=== PATIENT | male | born 1980 | race Caucasian/White ===

== ENCOUNTER 2017-03-12 03:54 | Emergency (ER) | payer SELFPAY ==
[2017-03-12] MEDS ORDERED: guaiFENesin/DEXTROMETHORPHAN 10 ML UDC PO STA (04:02)
[2017-03-12] MEDS ORDERED: PSEUDOEPHEDRINE 30 MG TABLET PO STA (04:02)
[2017-03-12] MEDS ORDERED: DEXAMETHASONE 10 MG/ML VIAL PO STA (04:02)
[2017-03-12] MEDS ORDERED: KETOROLAC 60 MG/2 ML VIAL IM STA (04:03)
[2017-03-12] MEDS ORDERED: BENZONATATE 100 MG CAPSULE PO STA (04:03)
[2017-03-12] MEDS ORDERED: BENZONATATE 100 MG CAPSULE PO ONE (04:05)
[2017-03-12] MEDS ORDERED: DEXAMETHASONE 10 MG/ML VIAL ONE (04:06)
[2017-03-12] MEDS ORDERED: PSEUDOEPHEDRINE 30 MG TABLET PO ONE (04:06)
[2017-03-12] MEDS ORDERED: KETOROLAC 60 MG/2 ML VIAL ONE (04:06)
[2017-03-12] MEDS ORDERED: guaiFENesin/DEXTROMETHORPHAN 10 ML UDC ONE (04:06)
[2017-03-12 04:27] LABS: RAPID STREP SCREEN REAGENT QC YELLOW (YELLOW)
[2017-03-12 04:28] VITALS: BP 141/94
--- NOTE | 2017-03-12 04:35 | ED Physician Documentation ---
PD HPI URI - Stated complaint Stated Complaint: SORE THROAT,CONGESTION - Chief complaint Chief Complaint: Heent - History obtained from History obtained from: Patient - History of Present Illness Timing - onset: How many days ago (3) Timing details: Gradual onset, Still present Associated symptoms: Nasal congestion, Rhinorrhea, Sinus pain, Dry cough. No: Productive cough Contributing factors: No: Sick contact Similar symptoms before: Has not had sx before Recently seen: Not recently seen - Additional information Additional information: Patient is a 37 year old male with no significant past medical history who is presenting to the emergency department for nasal congestion, cough and sore throat. patient states that he has been congested and unable to sleep and now has developed a sore throat with his other symptoms. Review of Systems Constitutional: denies: Fever, Chills Eyes: denies: Loss of vision Ears: denies: Loss of hearing, Ear pain Nose: reports: Rhinorrhea / runny nose, Congestion, Sinus pressure / pain Throat: reports: Sore throat Respiratory: reports: Cough GI: denies: Nausea, Vomiting : denies: Dysuria, Frequency Skin: denies: Rash, Lesions Musculoskeletal: denies: Neck pain, Back pain Immunocompromised: denies: Immunocompromised PD PAST MEDICAL HISTORY - Past Medical History Past Medical History: No - Past Surgical History Past Surgical History: No - Present Medications Home Medications: Ambulatory Orders Medication Instructions Recorded Confirmed Pseudoeph/Dm/Guaifen/Acetamin 1 each PO Q6HR #20 tablet 03/12/17 [Duraflu 722-10-061-60 mg Tab] - Allergies Allergies/Adverse Reactions: Allergies Allergy/AdvReac Type Severity Reaction Status Date / Time No Known Drug Allergies Allergy Verified 03/12/17 04:02 - Social History Does the pt smoke?: No Smoking Status: Never smoker Does the pt drink ETOH?: No Does the pt have substance abuse?: No - Immunizations Immunizations are current?: Yes PD ED PE NORMAL - Vitals Vital signs reviewed: Yes - General General: Alert and oriented X 3, No acute distress - HEENT HEENT: Atraumatic, PERRL - Neck Neck: Supple, no meningeal sign, No JVD - Cardiac Cardiac: RRR, No murmur - Respiratory Respiratory: No respiratory distress, Clear bilaterally - Abdomen Abdomen: Soft, Non tender, Non distended - Derm Derm: Normal color, Warm and dry, No rash - Extremities Extremities: No deformity, No tenderness to palpate - Neuro Neuro: Alert and oriented X 3, No motor deficit, No sensory deficit, Normal speech PD ED PE EXPANDED - HEENT HEENT: Nasal congestion, Rhinorrhea, Moist mucous membranes, Pharyngeal erythema , Swollen tonsils Results - Vitals Vitals: Vital Signs - 24 hr 03/12/17 04:00 Temperature 36.5 C Heart Rate 80 Respiratory 16 Rate Blood Pressure 141/94 H O2 Saturation 97 Oxygen O2 Source Room air - Labs Labs: Laboratory Tests 03/12/17 04:16 Group A Strep Rapid Negative PD MEDICAL DECISION MAKING - ED course Complexity details: reviewed old records, reviewed results, re-evaluated patient , considered differential, d/w patient, d/w family ED course: Patient was seen and examined at bedside. Patient was in no acute distress and vital signs were within normal limits. rapid strep was performed and was within normal limits. patient was treated with decadron, toradol. pseudophed, robitussun. Patien required no further work up and was stable for discharge with outpatient follow up. Departure - Departure Disposition: 01 Home, Self Care Clinical Impression: Upper respiratory infection Condition: Good Instructions: ED URI Viral Follow-Up: primary,care provider [Other] - As Needed Prescriptions: Pseudoeph/Dm/Guaifen/Acetamin [Duraflu 704-48-325-60 mg Tab] 1 each PO Q6HR #20 tablet Comments: Your symptoms today are being caused by an upper respiratory infection. They are normally viral in nature meaning they are self limited. You can take over the counter cough and cold medicine, but make sure it has some type of decongestant like psuedophed. You should follow up with your pmd if your symptoms persist for over a week. You may return to the emergency department at any time for new, worsening or uncontrollable sympotms.
== END 2017-03-12 04:55 | disposition home or self-care (01) ==
LOC: ED 03:54
DX: J06.9 Acute upper respiratory infection, unspecified (principal)
CPT/HCPCS: 87070; 87430; 96372; 99283; A9270

== ENCOUNTER 2017-10-07 18:23 | Emergency (ER) | payer OTHER ==
[2017-10-07 19:55] LABS: BASOPHILS # (AUTO) 0.1 10^3/uL (0.0-0.1); BASOPHILS % (AUTO) 0.6 %; EOSINOPHILS # (AUTO) 0.2 10^3/uL (0.0-0.7); EOSINOPHILS % (AUTO) 1.9 %; LYMPHOCYTES # (AUTO) 2.9 10^3/uL (1.5-3.5); LYMPHOCYTES % (AUTO) 23.2 %; MEAN CORPUSCULAR HGB CONC 33.3 g/dL (32.0-36.0); MEAN CORPUSCULAR VOLUME 90.1 fL (80.0-94.0); MEAN PLATELET VOLUME 9.1 fL (7.4-11.4); MONOCYTES # (AUTO) 0.9 10^3/uL (0.0-1.0); MONOCYTES % (AUTO) 7.3 %; NEUTROPHILS # (AUTO) 8.5 10^3/uL (1.5-6.6); PLT - PLATELET COUNT 243 10^3/uL (130-450); RED BLOOD COUNT 5.01 10^6/uL (4.70-6.10); RED CELL DISTRIBUTION WIDTH 13.2 % (12.0-15.0); WHITE BLOOD COUNT 12.7 x10^3/uL (4.8-10.8)
[2017-10-07 20:09] LABS: ALBUMIN 4.7 g/dL (3.2-5.5); ALBUMIN/GLOBULIN RATIO 1.4 (1.0-2.2); BILIRUBIN,TOTAL 0.7 mg/dL (0.2-1.0); CALCIUM 9.2 mg/dL (8.5-10.3); CREATININE 0.9 mg/dL (0.6-1.2)
[2017-10-07 20:33] LABS: BILIRUBIN,URINE NEGATIVE (NEGATIVE); GLUCOSE, URINE (UA) NEGATIVE (NEGATIVE); KETONES,URINE (UA) TRACE mg/dL (NEGATIVE); LEUKOCYTE ESTERASE, URINE NEGATIVE (NEGATIVE); NITRITE,URINE NEGATIVE (NEGATIVE); OCCULT BLOOD,URINE NEGATIVE (NEGATIVE); PROTEIN,URINE NEGATIVE (NEGATIVE); UROBILINOGEN,URINE 0.2 (NORMAL) E.U./dL (NORMAL)
[2017-10-07 20:35] VITALS: BP 155/103
[2017-10-07 20:35] LABS: CLARITY,URINE CLEAR (CLEAR)
[2017-10-07] MEDS ORDERED: KETOROLAC 60 MG/2 ML VIAL IM STA (20:55)
--- NOTE | 2017-10-07 20:55 | ED Physician Documentation ---
PD HPI ABD PAIN - Stated complaint Stated Complaint: SIDE PX - Chief complaint Chief Complaint: Abd Pain - History obtained from History obtained from: Patient - History of Present Illness Timing - onset: Yesterday Timing - details: Gradual onset, Still present Quality: Aching Location: RUQ, LUQ Improved by: Laying still Worsened by: Moving, Breathing, Position, Palpation Associated symptoms: No: Fever, Nausea, Vomiting, Diarrhea, Constipation Similar symptoms before: Has not had sx before Recently seen: Not recently seen - Additional information Additional information: Patient is a 37 year old male with no significant past medical history who is presenting to the emergency department for bilateral upper abdominal pain, with pain under his ribs. 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 patient states that since he has been working he has some pain in his abdominal region. Patient denies nausea, vomiting, diarhhea, constipation, fever or chills. Review of Systems Constitutional: denies: Fever, Myalgias Eyes: reports: Reviewed and negative Ears: reports: Reviewed and negative Nose: reports: Reviewed and negative Cardiac: denies: Chest pain / pressure, Palpitations, Calf pain Respiratory: denies: Dyspnea, Cough, Wheezing GI: reports: Abdominal Pain. denies: Abdominal Swelling, Nausea, Vomiting, Constipation, Diarrhea : denies: Dysuria, Frequency, Hesitancy, Unable to Void Skin: denies: Rash, Lesions Neurologic: denies: Generalized weakness, Focal weakness PD PAST MEDICAL HISTORY - Past Medical History Past Medical History: Yes Psych: Anxiety - Past Surgical History Past Surgical History: No - Present Medications Home Medications: Ambulatory Orders Medication Instructions Recorded Confirmed No Known Home Medications [No 10/07/17 10/07/17 Known Home Medications] - Allergies Allergies/Adverse Reactions: Allergies Allergy/AdvReac Type Severity Reaction Status Date / Time No Known Drug Allergies Allergy Verified 10/07/17 18:37 - Social History Does the pt smoke?: No Smoking Status: Never smoker Does the pt drink ETOH?: No Does the pt have substance abuse?: No - Immunizations Immunizations are current?: Yes PD ED PE NORMAL - Vitals Vital signs reviewed: Yes - General General: No acute distress - HEENT HEENT: Atraumatic, PERRL, Moist mucous membranes - Neck Neck: Supple, no meningeal sign, No JVD - Cardiac Cardiac: RRR, No murmur - Respiratory Respiratory: No respiratory distress, Clear bilaterally - Abdomen Abdomen: Soft, Non tender, Non distended - Derm Derm: Normal color, Warm and dry, No rash - Extremities Extremities: No deformity, Normal ROM s pain, No edema, No calf tenderness / cord - Neuro Neuro: Alert and oriented X 3, No motor deficit, No sensory deficit, Normal speech - Psych Psych: Normal mood Results - Vitals Vitals: Vital Signs - 24 hr 10/07/17 10/07/17 18:35 20:32 Temperature 37.1 C 36.7 C Heart Rate 84 74 Respiratory 18 18 Rate Blood Pressure 164/95 H 155/103 H O2 Saturation 99 99 Oxygen O2 Source Room air - Labs Labs: Laboratory Tests 10/07/17 10/07/17 10/07/17 18:56 19:48 19:48 WBC 12.7 H RBC 5.01 Hgb 15.0 Hct 45.1 MCV 90.1 MCH 30.0 MCHC 33.3 RDW 13.2 Plt Count 243 MPV 9.1 Neut # 8.5 H Lymph # 2.9 [place] # 0.9 Eos # 0.2 Baso # 0.1 Absolute Nucleated RBC 0.00 Nucleated RBC % 0.0 Sodium 135 Potassium 3.9 Chloride 97 L Carbon Dioxide 27 Anion Gap 11.0 BUN 13 Creatinine 0.9 Estimated GFR (MDRD) 95 Glucose 102 H Calcium 9.2 Total Bilirubin 0.7 AST 26 ALT 34 Alkaline Phosphatase 82 Total Protein 8.0 Albumin 4.7 Globulin 3.3 Albumin/Globulin Ratio 1.4 Lipase 32 Urine Color YELLOW Urine Clarity CLEAR Urine pH 7.0 Ur Specific [place] 1.010 Urine Protein NEGATIVE Urine Glucose (UA) NEGATIVE Urine Ketones TRACE Urine Occult Blood NEGATIVE Urine Nitrite NEGATIVE Urine Bilirubin NEGATIVE Urine Urobilinogen 0.2 (NORMAL) Ur Leukocyte Esterase NEGATIVE Ur Microscopic Review NOT INDICATED Urine Culture Comments NOT INDICATED PD MEDICAL DECISION MAKING - ED course Complexity details: reviewed old records, reviewed results, re-evaluated patient , considered differential, d/w patient ED course: Patient was seen and examined at bedside. labs were drawn and urine was collected. patient's diagnostics were within normal limits. patient's symptoms were likely msk in nature. patient was treated with toradol. patient required no further work up and was stable for discharge with outpatient follow up. Departure - Departure Disposition: 01 Home, Self Care Clinical Impression: Abdominal muscle strain Condition: Good Instructions: ED Strain Abdominal Muscle Follow-Up: primary,care provider [Other] - As Needed Comments: Your diagnostics today were within normal limits. there were no major abnormalities. Your symptoms are likely musculoskeletal in nature from work. You should alternate between ibuprofen and tylenol for pain. You should return to the emergency department for fevers, uncontrollable vomiting, new, worsening or uncontrollable symptoms. Discharge Date/Time: 10/07/17 21:06
== END 2017-10-07 21:06 | disposition home or self-care (01) ==
LOC: ED 18:23
DX: S39.011A Strain of muscle, fascia and tendon of abdomen, initial encounter (principal); X50.3XXA Overexertion from repetitive movements, initial encounter; Y92.89 Other specified places as the place of occurrence of the external cause; Y99.0 Civilian activity done for income or pay
CPT/HCPCS: 36415; 80053; 81001; 81003; 83690; 85025; 87086; 96372; 99283

== ENCOUNTER 2017-10-29 09:59 | Emergency (ER) | payer OTHER ==
[2017-10-29 10:07] VITALS: BP 116/82
[2017-10-29] MEDS ORDERED: PSEUDOEPHEDRINE 30 MG TABLET PO STA (10:17)
[2017-10-29] MEDS ORDERED: OXYMETAZOLINE NASAL SPRAY NAS STA (10:17)
--- NOTE | 2017-10-29 10:21 | ED Physician Documentation ---
History of Present Illness - Stated complaint Stated Complaint: COLD SX - Chief complaint Chief Complaint: Heent - Additonal information Additional information: hx from pt 37 m recent cough that is now improving now has severe nasal congestion and pressure behind his eyes tried choloraseptic, mucinex, vicks and other OTC meds s relief sick contacts at work no foreign travel Review of Systems Constitutional: denies: Fever Nose: reports: Congestion, Sinus pressure / pain Respiratory: reports: Cough Immunocompromised: denies: Immunocompromised PD PAST MEDICAL HISTORY - Past Medical History Past Medical History: Yes Psych: Anxiety - Past Surgical History Past Surgical History: No - Present Medications Home Medications: Ambulatory Orders Medication Instructions Recorded Confirmed Fluticasone [Flonase] 1 sprays BENNIE BID PRN #1 bottle 10/29/17 Pseudoephedrine [Sudafed] 30 mg PO Q6H PRN #12 tablet 10/29/17 - Allergies Allergies/Adverse Reactions: Allergies Allergy/AdvReac Type Severity Reaction Status Date / Time No Known Drug Allergies Allergy Verified 10/29/17 10:07 - Social History Does the pt smoke?: No Smoking Status: Never smoker Does the pt drink ETOH?: No Does the pt have substance abuse?: No - Immunizations Immunizations are current?: Yes PD ED PE NORMAL - Vitals Vital signs reviewed: Yes - General General: Alert and oriented X 3 - HEENT HEENT: EOMI, Ears normal, Moist mucous membranes, Pharynx benign (PND and erythema), Other (no focal sinus TTP redness or swelling) - Neck Neck: Supple, no meningeal sign - Cardiac Cardiac: RRR - Respiratory Respiratory: No respiratory distress, Clear bilaterally - Derm Derm: Normal color - Neuro Neuro: Alert and oriented X 3 Results - Vitals Vitals: Vital Signs - 24 hr 10/29/17 10:05 Temperature 36.8 C Heart Rate 98 Respiratory 18 Rate Blood Pressure 116/82 H O2 Saturation 98 Oxygen O2 Source Room air Departure - Departure Clinical Impression: Upper respiratory infection Qualifiers: URI type: unspecified viral URI Qualified Code(s): J06.9 - Acute upper respiratory infection, unspecified Condition: Good Instructions: ED URI Viral Prescriptions: Fluticasone [Flonase] 1 sprays BENNIE BID PRN #1 bottle PRN Reason: allergies Pseudoephedrine [Sudafed] 30 mg PO Q6H PRN #12 tablet PRN Reason: congestion Comments: May use the afrin we gave you for 3 days - 2 sprays twice a day. And the flonase 2 sprays once a day can be used until you have fully recovered Also may take sudafed to relieve the congestion and pressure - this is less likely to cause your heart to race etc than the phenylephrine decongestant may take plain mucinex as well but do not take any combination cold medications such as Dayquil while taking the medications I have prescribed. A sinus irrigation kit will help as well - these are available over the counter at most grocery stores and pharmacies Rest and drink plenty of fluids I wrote you a note to be off work for a few days so you can recover Forms: Activity restrictions
== END 2017-10-29 10:33 | disposition home or self-care (01) ==
LOC: ED 09:59
DX: J06.9 Acute upper respiratory infection, unspecified (principal)
CPT/HCPCS: 99283; A9270

== ENCOUNTER 2018-02-08 15:26 | Emergency (ER) | payer OTHER ==
[2018-02-08 15:41] VITALS: BP 140/81
[2018-02-08 18:21] LABS: BASOPHILS # (AUTO) 0.1 10^3/uL (0.0-0.1); BASOPHILS % (AUTO) 0.5 %; EOSINOPHILS # (AUTO) 0.4 10^3/uL (0.0-0.7); EOSINOPHILS % (AUTO) 3.4 %; HGB - HEMOGLOBIN 15.2 g/dL (14.0-18.0); LYMPHOCYTES # (AUTO) 3.3 10^3/uL (1.5-3.5); LYMPHOCYTES % (AUTO) 28.7 %; MEAN CORPUSCULAR HEMOGLOBIN 29.4 pg (27.0-31.0); MEAN CORPUSCULAR HGB CONC 32.8 g/dL (32.0-36.0); MEAN CORPUSCULAR VOLUME 89.7 fL (80.0-94.0); MEAN PLATELET VOLUME 9.9 fL (7.4-11.4); MONOCYTES % (AUTO) 8.9 %; NEUTROPHILS # (AUTO) 6.7 10^3/uL (1.5-6.6); NEUTROPHILS % (AUTO) 58.5 %; PLT - PLATELET COUNT 209 10^3/uL (130-450); RED BLOOD COUNT 5.17 10^6/uL (4.70-6.10); RED CELL DISTRIBUTION WIDTH 14.1 % (12.0-15.0); WHITE BLOOD COUNT 11.5 x10^3/uL (4.8-10.8)
[2018-02-08 18:26] LABS: CALCIUM 8.9 mg/dL (8.5-10.3); CREATININE 0.8 mg/dL (0.6-1.2)
--- NOTE | 2018-02-08 18:31 | ED Physician Documentation ---
History of Present Illness - Stated complaint Stated Complaint: LIGHTHEADED - Chief complaint Chief Complaint: Neuro - History obtained from History obtained from: Patient - History of Present Illness Timing: How many days ago (past several days) Pain level max: 0 Pain level now: 0 Improved by: lying down Worsened by: standing up quickly - Additonal information Additional information: Patient is a 38-year-old male who presents to the emergency department with lightheadedness after standing for the past few days. States especially occurs if he gets up too quickly. States drinks very little water. Is from [place] and states it is not hot enough here to drink water. Has no shortness of breath. No chest pain. No history of diabetes. No increased hunger or thirst. No headaches. No focal neurological deficits. No vertiginous symptoms. No syncope. Review of Systems Ten Systems: 10 systems reviewed and negative Constitutional: denies: Fever, Chills Eyes: denies: Loss of vision, Decreased vision, Photophobia Ears: denies: Ear pain Nose: denies: Rhinorrhea / runny nose, Congestion, Foreign Body Throat: denies: Sore throat Cardiac: denies: Chest pain / pressure Respiratory: denies: Cough GI: denies: Abdominal Pain, Nausea, Vomiting, Diarrhea Skin: denies: Rash Musculoskeletal: denies: Neck pain, Back pain Neurologic: denies: Focal weakness, Numbness, Difficulty speaking, Near syncope , Syncope, Confused, Altered mental status, Headache, Head injury, LOC PD PAST MEDICAL HISTORY - Past Medical History Past Medical History: Yes Psych: Anxiety - Past Surgical History Past Surgical History: No - Present Medications Home Medications: Ambulatory Orders Medication Instructions Recorded Confirmed No Known Home Medications [No 02/08/18 02/08/18 Known Home Medications] - Allergies Allergies/Adverse Reactions: Allergies Allergy/AdvReac Type Severity Reaction Status Date / Time No Known Drug Allergies Allergy Verified 10/29/17 10:07 - Social History Does the pt smoke?: No Smoking Status: Never smoker Does the pt drink ETOH?: No Does the pt have substance abuse?: No - Immunizations Immunizations are current?: Yes - POLST Patient has POLST: No PD ED PE NORMAL - Vitals Vital signs reviewed: Yes - General General: Alert and oriented X 3, No acute distress - HEENT HEENT: Atraumatic, PERRL, EOMI, Moist mucous membranes - Neck Neck: Supple, no meningeal sign, No bony TTP, No JVD, No bruit - Cardiac Cardiac: RRR - Respiratory Respiratory: No respiratory distress, Clear bilaterally - Abdomen Abdomen: Soft, Non tender, Non distended - Back Back: No spinal TTP - Derm Derm: Warm and dry, No rash - Extremities Extremities: No edema, No calf tenderness / cord, Other (normal gait.) - Neuro Neuro: Alert and oriented X 3, needle board repairer 2-12 intact, No motor deficit, No sensory deficit, Normal speech, Other (normal cerebellar tests. No nystagmus.) Eye Opening: Spontaneous Motor: Obeys Commands Verbal: Oriented GCS Score: 15 - Psych Psych: Normal mood, Normal affect Results - Vitals Vitals: Vital Signs - 24 hr 02/08/18 15:34 Temperature 36.7 C Heart Rate 60 Respiratory 16 Rate Blood Pressure 140/81 H O2 Saturation 98 Oxygen O2 Source Room air - Labs Labs: Laboratory Tests 02/08/18 02/08/18 18:05 18:05 WBC 11.5 H RBC 5.17 Hgb 15.2 Hct 46.4 MCV 89.7 MCH 29.4 MCHC 32.8 RDW 14.1 Plt Count 209 MPV 9.9 Neut # 6.7 H Lymph # 3.3 [place] # 1.0 Eos # 0.4 Baso # 0.1 Absolute Nucleated RBC 0.00 Nucleated RBC % 0.0 Sodium 137 Potassium 3.5 Chloride 103 Carbon Dioxide 25 Anion Gap 9.0 BUN 16 Creatinine 0.8 Estimated GFR (MDRD) 108 Glucose 93 Calcium 8.9 PD MEDICAL DECISION MAKING - ED course Complexity details: reviewed results, re-evaluated patient, considered differential, d/w patient ED course: Patient is a 38-year-old male who has been having lightheadedness with standing for the past few days. Appears likely related to decreased water intake. No evidence of diabetes. No electrolyte abnormalities. No evidence of stroke. No evidence of vertigo. No evidence of tumor mass. Normal neurological exam. We will have him follow-up with his doctor for further care. Feels better after drinking water here. Patient counseled regarding signs and symptoms for which I believe and urgent re-evaluation would be necessary. Patient with good understanding of and agreement to plan and is comfortable going home at this time This document was made in part using voice recognition software. While efforts are made to proofread this document, sound alike and grammatical errors may occur. Departure - Departure Disposition: 01 Home, Self Care Clinical Impression: Lightheaded, Dehydration Condition: Good Instructions: ED Dehydration Follow-Up: your,doctor in 1 week if not better [Other] Comments: Drink plenty of fluids. Return if you worsen or are not improved in the next week. Discharge Date/Time: 02/08/18 18:38
== END 2018-02-08 18:38 | disposition home or self-care (01) ==
LOC: ED 15:26
DX: R42 Dizziness and giddiness (principal); E86.0 Dehydration
CPT/HCPCS: 36415; 80048; 85025; 93005; 99281; 99283

== ENCOUNTER 2018-07-29 18:04 | Emergency (ER) | payer OTHER ==
[2018-07-29 18:30] VITALS: BP 156/94
--- NOTE | 2018-07-29 18:52 | ED Physician Documentation ---
PD HPI LOWER EXT INJURY - Stated complaint Stated Complaint: LT LEG SWOLLEN - Chief complaint Chief Complaint: Wound - History obtained from History obtained from: Patient - History of Present Illness PD HPI LOW EXT INJURY LOCATION: Left (A few days ago he noted an inflamed spot just below and posterior to the left knee. He has been on his knees a lot lately at work, he works as a ship builder. No chest pain or trouble breathing.) Review of Systems Constitutional: reports: Reviewed and negative Cardiac: reports: Reviewed and negative Respiratory: reports: Reviewed and negative PD PAST MEDICAL HISTORY - Past Medical History Past Medical History: No Psych: Anxiety - Past Surgical History Past Surgical History: No - Present Medications Home Medications: Ambulatory Orders Medication Instructions Recorded Confirmed No Known Home Medications 02/08/18 07/29/18 - Allergies Allergies/Adverse Reactions: Allergies Allergy/AdvReac Type Severity Reaction Status Date / Time No Known Drug Allergies Allergy Verified 07/29/18 18:30 - Social History Does the pt smoke?: No Smoking Status: Never smoker Does the pt drink ETOH?: No Does the pt have substance abuse?: No - Immunizations Immunizations are current?: Yes - POLST Patient has POLST: No PD ED PE NORMAL - Vitals Vital signs reviewed: Yes - General General: Alert and oriented X 3, No acute distress - Extremities Extremities: Other (There is a superficial varicose vein on the proximal medial calf on the left which is the site of his complaints. Bedside ultrasound confirms the diagnosis and it is completely compressible.) - Neuro Neuro: Alert and oriented X 3, Normal speech Results - Vitals Vitals: Vital Signs - 24 hr 07/29/18 18:28 Temperature 36.4 C L Heart Rate 63 Respiratory 16 Rate Blood Pressure 156/94 H O2 Saturation 98 Oxygen O2 Source Room air Departure - Departure Disposition: 01 Home, Self Care Clinical Impression: Varicose vein of leg Qualifiers: Varicose vein complication: inflammation Laterality: left Qualified Code(s): I83.12 - Varicose veins of left lower extremity with inflammation Condition: Good Record reviewed to determine appropriate education?: Yes Instructions: ED Veins Varicose Comments: Your blood pressure was elevated today on check into the emergency department. This does not mean that you have hypertension, it is a common phenomenon to come to the emergency department and have elevated blood pressure. I recommend that you see your primary care physician within the week to have it rechecked when you are feeling better.
== END 2018-07-29 18:56 | disposition home or self-care (01) ==
LOC: ED 18:04
DX: I83.12 Varicose veins of left lower extremity with inflammation (principal); R03.0 Elevated blood-pressure reading, without diagnosis of hypertension
CPT/HCPCS: 99282